=== PATIENT | female | born 1950 | race Caucasian/White ===

== ENCOUNTER → 2017-05-09 | Outpatient (CLI) | payer MEDICARE, OTHER | END | disposition home or self-care (01) | LOC: CFH 13:31 | PROVIDERS: ATTEND Family Medicine | DX: Z13.820 Encounter for screening for osteoporosis (principal); M85.88 Other specified disorders of bone density and structure, other site; N95.8 Other specified menopausal and perimenopausal disorders | CPT/HCPCS: 77080 ==

== ENCOUNTER → 2018-07-05 | Outpatient (CLI) | payer MEDICARE, OTHER | END | disposition home or self-care (01) | LOC: CFH 11:24 | PROVIDERS: ATTEND Family Medicine | DX: Z12.31 Encounter for screening mammogram for malignant neoplasm of breast (principal) | CPT/HCPCS: 77067 ==

== ENCOUNTER 2018-10-28 13:02 | Emergency (ER) | payer MEDICARE, OTHER ==
[~2018-10-28] VITALS: Ht 172.7 cm; Wt 91.4 kg
[2018-10-28 13:14] VITALS: BP 147/78
[2018-10-28 14:05] LABS: BASOPHILS # (AUTO) 0.04 x10^3/uL (0-0.1); BASOPHILS % (AUTO) 1 % (0-1); EOSINOPHILS # (AUTO) 0.21 x10^3/uL (0-0.4); EOSINOPHILS % (AUTO) 4 % (1-7); LYMPHOCYTES # (AUTO) 1.38 x10^3/uL (1-3.4); LYMPHOCYTES % (AUTO) 24 % (22-44); MD NO; MEAN CORPUSCULAR HEMOGLOBIN 32.2 pg (27.0-34.8); MEAN CORPUSCULAR HGB CONC 33.7 g/dL (32.4-35.8); MEAN CORPUSCULAR VOLUME 95.3 fL (80-100); MEAN PLATELET VOLUME 9.4 fL (7.4-10.4); MONOCYTES # (AUTO) 0.46 x10^3/uL (0.2-0.8); MONOCYTES % (AUTO) 8 % (2-9); NEUTROPHILS # (AUTO) 3.58 x10^3/uL (1.8-6.8); NEUTROPHILS % (AUTO) 63 % (42-75); PLATELET COUNT 196 x10^3/uL (130-400); RED BLOOD COUNT 4.14 x10^6/uL (3.82-5.3); RED CELL DISTRIBUTION WIDTH 15.4 % (9.6-15.2)
[2018-10-28 14:13] LABS: ALBUMIN 3.4 g/dL (3.4-5.0); ANION GAP 6 mmol/L (5-15); CALCIUM 8.5 mg/dL (8.5-10.1); CHLORIDE 113 mmol/L (98-107); CREATININE 0.77 mg/dL (0.55-1.02); INTERNATIONAL NORMALIZED RATIO 2.88 (0.93-1.1); PROTHROMBIN TIME 29.3 Seconds (9.6-11.5)
[2018-10-28] MEDS ORDERED: WARF4TAB PO (14:37)
[2018-10-28] MEDS ORDERED: WARF6TAB PO (14:37)
[2018-10-28] MEDS ORDERED: LEVO137T2 PO (14:39)
[2018-10-28] MEDS ORDERED: ATOR40TA78 PO (14:39)
[2018-10-28] MEDS ORDERED: CALCIUM (14:39)
[2018-10-28] MEDS ORDERED: METO25TA35 PO (14:39)
--- NOTE | 2018-10-28 14:40 | NUR ---
U/S AT BS FOR EXAM. PT A&OX4, RESP EVEN & UNLABORED, SPEECH CLEAR, SKIN WNL. STATES SHE'S "HERE TO RULE OUT A BLOOD CLOT IN MY RT LEG." HX RT KNEE REPLACEMENT 5 WKS AGO (09/21/18). C/O "PAIN FOR 5 WEEKS". "SWELLING THAT WON'T GO DOWN AND GETS WORSE IN THE AFTERNOON", "TINGLING" TO LOWER LEG. PT DENIES ADDITIONAL PAIN W/ WEIGHTBEARING/WALKING. DAUGHTER IS AN ORTHO AND SUGGESTED ED EVAL.
--- NOTE | 2018-10-28 15:26 | NUR ---
PT NOT IN ROOM
== END 2018-10-28 15:27 | disposition home or self-care (01) ==
LOC: ED 15:00
DX: M25.561 Pain in right knee (principal); M25.562 Pain in left knee; Z86.718 Personal history of other venous thrombosis and embolism; Z96.651 Presence of right artificial knee joint
CPT/HCPCS: 36415; 80048; 82040; 85025; 85610; 99284

== ENCOUNTER → 2019-10-31 | Outpatient (CLI) | payer MEDICARE, OTHER ==
[~2019-10-31] MED LIST: ATOR40TA78 PO; CALCIUM; LEVO137T2 PO; METO25TA35 PO; WARF4TAB PO; WARF6TAB PO
== END | disposition home or self-care (01) ==
LOC: CFH 11:27
PROVIDERS: ATTEND Family Medicine
DX: Z13.820 Encounter for screening for osteoporosis (principal); M85.88 Other specified disorders of bone density and structure, other site
CPT/HCPCS: 77080